=== PATIENT | female | born 1950 | race Caucasian/White ===

== ENCOUNTER 2019-01-05 15:31 | Emergency (ER) | payer OTHER ==
[~2019-01-05] VITALS: Ht 162.6 cm; Wt 66.7 kg
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
--- NOTE | 2019-01-05 15:39 | NUR ---
DR RANDALL AT BEDSIDE
[2019-01-05] MEDS: IV NS 0.9% 1,000 ML BAG IV ONE (15:42)
--- NOTE | 2019-01-05 15:43 | NUR ---
WHEELED OUT VIA [facility] FOR CT SCAN.
[2019-01-05] MEDS ORDERED: TDAP [DIPH/PERTUSSIS/TET] 0.5 ML VIAL IM ONE (16:17)
[2019-01-05] MEDS ORDERED: LIDOCAINE 1% INJ 50 ML MDV IJ ONE (16:17)
[2019-01-05] MEDS ORDERED: BACITRACIN ZINC OINT PACKET 1 EA PACKET TP ONE (16:17)
[2019-01-05] MEDS: LIDOCAINE 1% INJ 50 ML MDV IJ ONE (16:38)
[2019-01-05] MEDS: TDAP [DIPH/PERTUSSIS/TET] 0.5 ML VIAL IM ONE (16:38)
[2019-01-05] MEDS: BACITRACIN ZINC OINT PACKET 1 EA PACKET TP ONE (16:38)
--- NOTE | 2019-01-05 17:19 | NUR ---
ABLE TO AMBULATE TO RESTROOM W STEADY GAIT
--- NOTE | 2019-01-05 17:26 | NUR ---
IV removed. Catheter intact and site benign. Pressure and 4x4 applied to site. No bleeding noted.Patient discharged to home in stable condition. Written and verbal after care instructions given. Patient verbalizes understanding of instruction.
[2019-01-05 17:29] VITALS: BP 123/76
== END 2019-01-05 17:30 | disposition home or self-care (01) ==
LOC: ER 15:37
DX: S01.112A Laceration without foreign body of left eyelid and periocular area, initial encounter (principal); S09.8XXA Other specified injuries of head, initial encounter; F10.129 Alcohol abuse with intoxication, unspecified; Z88.0 Allergy status to penicillin; Z60.2 Problems related to living alone; W01.0XXA Fall on same level from slipping, tripping and stumbling without subsequent striking against object, initial encounter; Y93.89 Activity, other specified; Y92.89 Other specified places as the place of occurrence of the external cause; Y99.8 Other external cause status; Y90.9 Presence of alcohol in blood, level not specified
CPT/HCPCS: 12013; 70450; 71045; 72125; 90471; 90715; 99284; A6402 ×2; J3490; J7030